=== PATIENT | female | born 1975 | race Caucasian/White ===

== ENCOUNTER 2023-04-08 17:32 | Emergency (ER) | payer OTHER ==
[~2023-04-08] VITALS: Ht 175 cm; Wt 120.0 kg
--- NOTE | 2023-04-08 18:22 | ED Upper Extremity ---
General Chief Complaint: Upper Extremity Stated Complaint: INJ RIGHT ELBOW Nursing Triage Note: PT AMB TO RM 4 PT STATES FELL WHILE DIZZY AT [employer]. PT DENIES LOC. PT HAS SEVERE PAIN IN R ARM FROM SHOULDER DOWN TO HANDS. PT HAS ABRASION ON R KNEE. PT STATES HURTS ALL OVER. PT DENIES DIZZINESS AT THIS X. Source: patient Exam Limitations: no limitations History of Present Illness Date Seen by Provider: Apr 08, 2023 Time Seen by Provider: 18:22 Initial Comments Patient is a 47-year-old female who presents to the emergency room with a chief complaint of right elbow pain. Patient was getting up to go to the bathroom at the movie theater, became a little bit dizzy, slipped and fell onto her right side. She did hit her right elbow and left knee. Did not hit her head no loss of consciousness. She has a small abrasion and developing ecchymosis over the anterior left knee. She complains of inability to move the right elbow with tingling to the fourth and fifth fingers of the right hand. No chest injury, no abdominal injury. Onset: just prior to arrival Pain/Injury Location: right elbow; left other (Left knee contusion) Method of Injury: fell Modifying Factors: Improves With Immobilization; Worse With Movement Allergies and Home Medications Allergies Coded Allergies: morphine (Verified Allergy, Unknown, 04/08/23) Patient Home Medication List Home Medication List Reviewed: Yes Review of Systems Constitutional: see HPI EENTM: no symptoms reported Respiratory: no symptoms reported Cardiovascular: no symptoms reported Gastrointestinal: no symptoms reported Genitourinary: no symptoms reported Musculoskeletal: joint pain (Right elbow, left knee) Skin: other (Abrasion) Psychiatric/Neurological: Other (Tingling right fourth and fifth fingers) All Other Systems Reviewed Negative Unless Noted: Yes Past Rrdqaxm-Xqwwna-Rceziy Hx Patient Social History Tobacco Use?: No Substance use?: No Alcohol Use?: No Pt feels they are or have been: No Immunizations Up To Date First/Initial COVID19 Vaccinat: YES Second COVID19 Vaccination Luciano: YES Past Medical History Surgery/Hospitalization HX: TREMORS. DEPRESSION, NEUROPATHY, ADHD, BACK SURGERY, DM, L KNEE SURG ARTHROSCOPY Physical Exam Vital Signs Vital Signs - First Documented 04/08/23 17:50 Temp 36.5 Pulse 85 B/P (MAP) 131/91 (104) Pulse Ox 99 O2 Delivery Room Air Capillary Refill : Less Than 3 Seconds Height, Weight, BMI Height: '" Weight: lbs. oz. kg; 39.00 BMI Method: General Appearance: WD/WN, mild distress (Due to right elbow pain) HEENT: PERRL/EOMI Cardiovascular: regular rate, rhythm, other (Distal pulses intact) Respiratory: lungs clear, normal breath sounds, no respiratory distress, no accessory muscle use Gastrointestinal: non tender, soft Shoulder: normal inspection, non-tender, no evidence of injury, normal ROM Elbow/Forearm: Right, limited ROM (Limited range of motion of the right elbow due to pain), soft tissue tenderness (Proximal right forearm) Wrist: Yes normal inspection, Yes non-tender, Yes no evidence of injury, Yes normal ROM Hand: normal inspection, non-tender, no evidence of injury, normal ROM, Right Neurologic/Psychiatric: alert, normal mood/affect, oriented x 3 Skin: normal color, warm/dry, other (Superficial abrasions and ecchymosis anterior left knee) Progress/Results/Core Measures Results/Orders My Orders Orders - CASSIDY THOMAS MD Fentanyl Inj (Sublimaze Injection) (04/08/23 18:28) Hydrocodone/Apap 5/325 Tablet (Lortab 5 (04/08/23 18:30) Elbow, Right, 3 Views (04/08/23 18:28) Humerus, Right, 2 Views (04/08/23 19:27) Rx-Hydrocodone/Apap 5-325 Mg (Rx-Vicodin (04/08/23 20:15) Medications Given in ED Current Medications Medications Dose Ordered Sig/Randa Route Start Time Stop Time Status Last Admin Dose Admin Acetaminophen/ Hydrocodone Bitart 1 ea ONCE ONCE PO 04/08/23 18:30 04/08/23 18:31 DC 04/08/23 18:48 1 EA Acetaminophen/ Hydrocodone Bitart 1 ea Q6H PRN PO 04/08/23 20:15 04/08/23 20:19 DC 04/08/23 20:12 1 EA Vital Signs/I&O 04/08/23 04/08/23 17:50 20:18 Temp 36.5 36.5 Pulse 85 80 B/P (MAP) 131/91 (104) 127/87 Pulse Ox 99 100 O2 Delivery Room Air Room Air Blood Pressure Mean: 104 Progress Progress Note #1: Time: 19:25 Progress Note re-examined after xray of left elbow (which is negative for acute fracture/dislocation) patient is pointing over distal (volar) humerus as source of pain. States that she cannot fully extend elbow. tearful and resists ROM. No palpable biceps contraction (to suggest biceps tear) no bony tenderness over the shoulder. She also resists ROM of the right shoulder joint. will xray right humerus as well now. Progress Note #2: Time: 20:00 Progress Note Patient right humerus xray unremarkable for any fractures; treated with pain medications. She seems to have pain out of proportion to exam. RUE has normal pulses and sensation. Recc sling for comfort and follow up with PCP and Ortho. Return precautions provided. Diagnostic Imaging Diagon[facility] Imaging: Xray Comments NAME: PENNY AMAYA MED REC#: [id number] PT STATUS: REG ER : 1975 PHYSICIAN: CASSIDY THOMAS MD ADMIT DATE: 04/08/23/ER Draft Date of Exam:04/08/23 ELBOW, RIGHT, 3 VIEWS INDICATION: Fall. EXAMINATION: Three views were obtained. FINDINGS: The alignment is normal. There is no fracture or dislocation. Soft tissues are unremarkable. IMPRESSION: No acute fracture or dislocation. Dictated on workstation # [id number] Dict: 04/08/231909 Trans: 04/08/231912 [facility] [id number] Interpreted by: JENNIFER CUMMINGS MD Electronically signed by: Diagon[facility] Imaging: Xray Comments [facility] [place], [place] NAME: PENNY AMAYA MED REC#: [id number] PT STATUS: REG ER : 1975 PHYSICIAN: CASSIDY THOMAS MD ADMIT DATE: 04/08/23/ER Signed Date of Exam:04/08/23 HUMERUS, RIGHT, 2 VIEWS INDICATION: Pain after fall. EXAMINATION: Two views were obtained. FINDINGS: The alignment is normal. There is no fracture or dislocation. Soft tissues are unremarkable. IMPRESSION: No acute fracture or dislocation. Dictated by: Dictated on workstation # [id number] Dict: 04/08/231942 Trans: 04/08/232007 E [id number] Interpreted by: JENNIFER CUMMINGS MD Electronically signed by: JENNIFER CUMMINGS MD 04/08/232007 Departure Impression Primary Impression: Contusion of left knee Qualified Codes: S80.02XA - Contusion of left knee, initial encounter Additional Impression: Contusion of right upper arm Qualified Codes: S40.021A - Contusion of right upper arm, initial encounter Disposition: HOME, SELF-CARE Condition: Stable Departure-Patient Inst. Decision time for Depature: 20:05 Referrals: UNKNOWN (PCP) Primary Care Physician KOLBY KELLY MD Patient Instructions: Contusion (DC) Add. Discharge Instructions: Apply ice to the sore areas of your right arm and left knee 20 minutes at a time multiple times daily over the next 48 hours. Wear the sling for comfort for no more than 48 hours while awake. You can take twqm-nej-etsrufq ibuprofen 3 tablets which is 600 mg every 6 hours as needed for pain and inflammation. I have given you 4 hydrocodone tablets. You can also take 1 of these every 6-8 hours as needed for pain. Please follow-up with your primary care provider on Monday for possible orthopedic referral. I have also attached contact information for Dr. Kelly if you have ongoing pain or concerns, orthopedic evaluation may be needed. Return to the emergency department for any new, concerning or emergent complaints. CASSIDY THOMAS MD Apr 08, 2023 18:22
[2023-04-08] MEDS ORDERED: fentaNYL INJ 100 MCG/2 ML AMP IM STA (18:28)
[2023-04-08] MEDS ORDERED: HYDROcodone/APAP 5 MG/325 MG (LORTAB) TAB PO ONE (18:30)
--- NOTE | 2023-04-08 19:13 | Diagnostic Imaging Report ---
INDICATION: Fall. EXAMINATION: Three views were obtained. FINDINGS: The alignment is normal. There is no fracture or dislocation. Soft tissues are unremarkable. IMPRESSION: No acute fracture or dislocation. Dictated by: Dictated on workstation # [id number]
--- NOTE | 2023-04-08 19:46 | Diagnostic Imaging Report ---
INDICATION: Pain after fall. EXAMINATION: Two views were obtained. FINDINGS: The alignment is normal. There is no fracture or dislocation. Soft tissues are unremarkable. IMPRESSION: No acute fracture or dislocation. Dictated by: Dictated on workstation # [id number]
[2023-04-08 20:18] VITALS: BP 127/87
== END 2023-04-08 20:19 | disposition home or self-care (01) ==
LOC: EDUNIT# 17:32 → ER 17:37
DX: S80.02XA Contusion of left knee, initial encounter (principal); S50.02XA Contusion of left elbow, initial encounter; Z88.5 Allergy status to narcotic agent; W01.198A Fall on same level from slipping, tripping and stumbling with subsequent striking against other object, initial encounter; Y92.254 Theater (live) as the place of occurrence of the external cause
CPT/HCPCS: 73060; 73080; 99283; A4565